=== PATIENT | female | born 1955 | race Caucasian/White ===

== ENCOUNTER 2016-08-06 06:48 | Day surgery (SDC) | payer OTHER ==
[2016-08-03 09:22] VITALS: BMI 20.3
[2016-08-06] MEDS ORDERED: MIDAZOLAM HCL 2 MG/2 ML SINGLE DOSE VIAL ONE (09:07)
[2016-08-06] MEDS ORDERED: PROPOFOL 20 ML ONE (09:07)
[2016-08-06] MEDS ORDERED: LIDOCAINE HCL/PF 2% SDV 5ML VIAL ONE (09:08)
[2016-08-06] MEDS ORDERED: BUPIVACAINE HCL/PF 2.5 MG/ML - 30 ML VIAL IJ ONE (09:09)
[2016-08-06] MEDS ORDERED: DEXAMETHASONE SOD PHOSPHATE 4 MG/1 ML VIAL ONE (09:42)
[2016-08-06] MEDS ORDERED: ceFAZolin SODIUM 1 GM VIAL ONE (09:42)
[2016-08-06] MEDS ORDERED: ONDANSETRON 4 MG/2 ML VIAL ONE ×2 (09:42→11:01)
[2016-08-06] MEDS ORDERED: KETOROLAC TROMETHAMINE 30 MG/1 ML VIAL ONE (10:05)
[2016-08-06] MEDS ORDERED: LACTATED RINGERS SOLUTION 1,000 ML IV SCH (11:00)
[2016-08-06] MEDS ORDERED: oxyCODONE HCL 5 MG TABLET PO PRN (11:01)
[2016-08-06] MEDS ORDERED: ONDANSETRON 4 MG/2 ML VIAL IVPUSH PRN (11:01)
[2016-08-06] MEDS ORDERED: PROMETHAZINE HCL 25 MG/1 ML VIAL ONE (11:12)
[2016-08-06] MEDS ORDERED: oxyCODONE HCL 5 MG TABLET ONE (12:26)
[2016-08-06] MEDS ORDERED: PROMETHAZINE HCL 25 MG/1 ML VIAL IVPUSH PRN (12:58)
[2016-08-06 13:08] VITALS: TEMP 97.8
[2016-08-06 14:29] VITALS: BP 118/58
[2016-08-06 14:30] VITALS: PULSE 74
--- NOTE | 2016-08-07 08:43 | OP ---
DATE OF OPERATION: 08/06/2016, done at [facility]. SURGEON: Sara Liu MD ASSISSTANT: MELO Clark PREOPERATIVE DIAGNOSIS: 1. Right knee medial and lateral meniscal tears. 2. Right knee cartilage injury. 3. Right knee synovitis. 4. Right knee insufficiency fracture, lateral femoral condyle. POSTOPERATIVE DIAGNOSIS: 1. Right knee medial and lateral meniscal tears. 2. Right knee cartilage injury. 3. Right knee synovitis. 4. Right knee insufficiency fracture, lateral femoral condyle. PROCEDURE: 1. Right knee arthroscopy with partial meniscectomy, medial and lateral meniscus. 2. Right knee arthroscopy with chondroplasty and abrasion-plasty. 3. Right knee arthroscopy with synovectomy plus major. 4. Right knee arthroscopy, percutaneous fixation of insufficiency fracture using AccuFill implant. FINDINGS: 1. Medial meniscus posterior horn tear. 2. Lateral meniscus posterior 1/2 tear with anterior horn tear. 3. Synovitis patellofemoral and medial and lateral . 4. Grade 2 cartilage injury in the medial femoral condyle. 5. ACL and PCL intact. 6. Grade 1-2 cartilage injury lateral tibial plateau. 7. Lateral facet grade 2-4 changes patella with grade 1-2 changes patellofemoral trochlea. 8. Edema in insufficiency fracture, posterior, inferior lateral femoral condyle. DESCRIPTION OF PROCEDURE: Informed consent was obtained the patient was taken to the operating room where the right lower extremity was prepped and draped in a sterile fashion. Tourniquet was placed on the upper thigh but not inflated. Using standard arthroscopic technique, a lateral incision and portal were made which allowed for introduction of the camera into the suprapatellar bursa. This was then taken to the medial joint line where under direct visualization a medial incision and portal were made. Excessive synovium noted in the medial, lateral, patellofemoral and notch area was removed by up-biter shaver and Bovie cautery. This was found to bring inflammatory tissue into the joint surface, a source of joint pain and dysfunction. Probing of the medial and lateral meniscus found tears described in the findings. These were removed with an up-biter, shaver, and taken back to stable rim. Grade 2-3 degenerative changes were treated with chondroplasty, removing all flaking surfaces with low setting Bovie used along the periphery. Grade 4 changes were treated with abrasion-plasty. All areas of the knee were once again re-examined. The knee was then drained. A single suture was placed on all portals. Sterile dressing was placed. The patient was transferred to the recovery room. ADDENDUM: With the use of C-arm fluoroscopy a pin was drilled into the posterior inferior portion of the lateral femoral condyle. This was the area identified by MRI as well as clinical exam with point contact of the insufficiency fracture. Using the [employer] pressure system, the calcium paste was prepared on the back table with the accelerator. This was introduced in through the drill hole filling up the area. Position of the drill pin was confirmed with C-arm fluoroscopy in AP, lateral, and oblique views, and a camera was placed into the joint to confirm that none of the cement would be leaking into the joint. After expiration of the cement into the lateral femoral condyle, the pin was held in place for 11 minutes to allow for full curing. Pin was removed. The camera was placed into the area along the bone in place, but there is no evidence of leakage across the area. Knee was then drained. A single suture placed in the portal. Sterile dressing was placed. The patient transferred to the recovery room without complications. SARA LIU M.D. [id number]
--- NOTE | 2016-08-10 13:46 | PATH ---
Surgical Pathology Report Patient Name: SUDHA TOBIN [facility]. Rec. #: [id number] /Age/Gender: 1955 (Age: 61) / F Account: [id number] Location: [facility] Taken: 08/06/2016 Received: 08/06/2016 Reported: 08/10/2016 Physicians: Philipp Jim M.D. Specimen(s) Received RIGHT KNEE SHAVINGS Clinical History Right knee insufficiency fracture Final Diagnosis SOFT TISSUE, RIGHT KNEE, ARTHROSCOPIC SHAVINGS: SYNOVIUM AND FIBROCARTILAGE WITH MYXOHYALINE DEGENERATION AND FIBRINOUS MATERIAL. Electronically Signed Alverto Calderon M.D. Gross Description Received in formalin, labeled "right knee shavings" is a 4.5 x 4.0 x 0.5 cm aggregate of ga-yellow soft tissue fragments. A personal financial representative portion is submitted in one cassette. 08/09/201608/09/2016
== END 2016-08-06 14:10 | disposition home or self-care (01) ==
LOC: EDBD 06:48 → FASU 06:48
PROVIDERS: ATTEND Orthopaedic Surgery
PROC: 0SBC4ZZ Excision of Right Knee Joint, Percutaneous Endoscopic Approach (ICD-10-PCS; 2016-08-06)
PROC: 0SBC4ZZ Excision of Right Knee Joint, Percutaneous Endoscopic Approach (ICD-10-PCS; 2016-08-06)
PROC: 0QS Lower Bones, Reposition (ICD-10-PCS; 2016-08-06)
PROC: 0SBC4ZZ Excision of Right Knee Joint, Percutaneous Endoscopic Approach (ICD-10-PCS; principal; 2016-08-06 09:49)
DX: S83.241A Other tear of medial meniscus, current injury, right knee, initial encounter (principal); S83.281A Other tear of lateral meniscus, current injury, right knee, initial encounter; S83.8X1A Sprain of other specified parts of right knee, initial encounter; M65.861 Other synovitis and tenosynovitis, right lower leg; M84.351A Stress fracture, right femur, initial encounter for fracture; X58.XXXA Exposure to other specified factors, initial encounter; Y93.9 Activity, unspecified; Y92.9 Unspecified place or not applicable
CPT/HCPCS: 73560-TC-RT; 88304-TC; 94760